=== PATIENT | female | born 1990 | race African-American/Black ===

== ENCOUNTER 2016-07-17 20:42 | Emergency (ER) | payer OTHER ==
[~2016-07-17] VITALS: Ht 157.5 cm; Wt 79.0 kg
[~2016-07-17 20:42] MED LIST: CEPHALEXIN500 MG PO; CIPROFLOXACN500 MG PO; NAPROSYN500 MG PO; PRENATAL1 TAB OR; ULTRAM50 MG OR
[2016-07-17] MEDS ORDERED: PERCOCET 5/325M1 TAB PO (23:41)
[2016-07-18] VITALS: BP 109/73
== END 2016-07-18 00:01 | disposition home or self-care (01) | DRG 103 ==
LOC: ED 20:42
DX: R51 Headache (principal); S93.401A Sprain of unspecified ligament of right ankle, initial encounter; V43.52XA Car driver injured in collision with other type car in traffic accident, initial encounter; Y92.411 Interstate highway as the place of occurrence of the external cause

== ENCOUNTER 2016-07-21 16:32 | Emergency (ER) | payer OTHER ==
[~2016-07-21] VITALS: Ht 157.5 cm; Wt 68.0 kg
[~2016-07-21 16:32] MED LIST changes: +PERCOCET 5/325M1 TAB PO
[2016-07-21] MEDS ORDERED: FLEXERIL PO (17:54)
[2016-07-21] MEDS ORDERED: MOTRIN800 MG PO (17:54)
[2016-07-21 18:04] VITALS: BP 124/81
== END 2016-07-21 18:04 | disposition home or self-care (01) | DRG 950 ==
LOC: ED 16:32
DX: S86.911D Strain of unspecified muscle(s) and tendon(s) at lower leg level, right leg, subsequent encounter (principal); G44.209 Tension-type headache, unspecified, not intractable; V43.52XD Car driver injured in collision with other type car in traffic accident, subsequent encounter

== ENCOUNTER 2017-06-18 21:54 | Emergency (ER) | payer SELFPAY ==
[~2017-06-18] VITALS: Ht 157.5 cm; Wt 78.0 kg
[~2017-06-18 21:54] MED LIST changes: +FLEXERIL PO; +MOTRIN800 MG PO
[2017-06-18] MEDS ORDERED: IBUPROFEN600 MG PO (22:27)
[2017-06-18 22:57] VITALS: BP 125/81
== END 2017-06-18 22:56 | disposition home or self-care (01) | DRG 558 ==
LOC: ED 21:54
DX: M65.842 Other synovitis and tenosynovitis, left hand (principal); M79.642 Pain in left hand

== ENCOUNTER 2024-01-25 08:19 | Emergency (ER) | payer SELFPAY ==
[~2024-01-25] VITALS: Ht 157.5 cm; Wt 78.0 kg
[~2024-01-25 08:19] MED LIST changes: +IBUPROFEN600 MG PO
[2024-01-25 08:28] VITALS: BP 111/76
[2024-01-25 09:00] VITALS: BP 118/76
[2024-01-25 09:17] VITALS: BP 118/76
== END 2024-01-25 09:20 | disposition home or self-care (01) | DRG 125 ==
LOC: ED 08:19
DX: H00.014 Hordeolum externum left upper eyelid (principal)